=== PATIENT | female | born 1950 | race Caucasian/White ===

== ENCOUNTER 2019-12-15 08:04 | Emergency (ER) | payer MEDICARE, OTHER ==
[~2019-12-15] VITALS: Ht 162.6 cm; Wt 59.9 kg
[2019-12-15] MEDS ORDERED: ANASTROZOLE1 MG PO (08:21)
[2019-12-15] MEDS ORDERED: VITAMIN D400 UNIT PO (08:22)
[2019-12-15] MEDS ORDERED: VITAMIN B122500 MCG PO (08:22)
[2019-12-15] MEDS ORDERED: LISINOPRIL2.5 MG PO (08:22)
[2019-12-15] MEDS ORDERED: FOSAMAX 70 MG T70 MG PO (08:22)
[2019-12-15] MEDS ORDERED: CALCIUM500 MG PO (08:22)
[2019-12-15 09:14] LABS: ABSOLUTE LYMPHOCYTES 0.8 thou/uL (0.8-5.3); ABSOLUTE MONOCYTES 0.4 thou/uL (0.0-1.2); ABSOLUTE NEUTROPHILS 1.8 thou/uL (1.6-8.1); BASOPHILS 1.2 %; EOSINOPHILS 1.1 %; HEMATOCRIT 37.7 % (37.0-47.0); HEMOGLOBIN 12.8 gm/dL (12.0-15.0); LYMPHOCYTES 25.1 %; MCH 30.9 pg (26.0-34.0); MCHC 33.8 g/dL (28.0-37.0); MCV 91.3 fL (80.0-100.0); MPV 5.9 fl. (7.2-11.1); NUCLEATED RBCS 0 /100WBC; PLATELET COUNT* 258 thou/uL (150-400); POLYS 58.6 %; RBC 4.13 mil/uL (4.20-5.00); RDW-CV 14.4 % (10.5-14.5); WBC 3.1 thou/uL (4.0-11.0)
[2019-12-15 09:34] LABS: ALBUMIN 3.6 g/dL (3.4-5.0); CALCIUM 8.5 mg/dL (8.5-10.1); CREATININE 0.8 mg/dL (0.6-1.3); POTASSIUM 4.1 mmol/L (3.5-5.1); TOTAL BILIRUBIN 0.3 mg/dL (<0.1-1.0); TOTAL PROTEIN 6.5 g/dL (6.4-8.2)
[2019-12-15 09:37] LABS: URINE BILIRUBIN NEGATIVE (Negative); URINE BLOOD NEGATIVE (Negative); URINE CLARITY CLEAR; URINE COLOR YELLOW; URINE GLUCOSE-RANDOM NEGATIVE (Negative); URINE KETONES NEGATIVE (Negative); URINE NITRITE-REFLEX NEGATIVE (Negative); URINE PROTEIN NEGATIVE (Negative); URINE UROBILINOGEN 0.2 E.U./dl (0.2-1.0)
[2019-12-15 09:39] LABS: URINE LEUKOCYTES-REFLEX 2+ (Negative)
[2019-12-15 09:46] LABS: CASTS None Seen /LPF (None Seen); CRYSTALS None Seen /LPF (None Seen); MUCUS 4-6 Moderate strn/LPF (None Seen); SQUAMOUS 4-10 Moderate /LPF (0-3); URINE RBC 0-2 Rare /HPF (0-2)
[2019-12-15 10:51] LABS: INFLUENZA A ANTIGEN Negative (Negative); INFLUENZA B ANTIGEN Negative (Negative)
[2019-12-15] MEDS ORDERED: KEFLEX500 M1 PO (11:31)
[2019-12-15 11:41] VITALS: BP 142/65
--- NOTE | 2019-12-15 15:04 | EKG ---
[place] [address] ELECTROCARDIOGRAM REPORT Name: EMILY YATES Room: [facility]#: [id number] Admission: 12/15/19 Attend Phys: Discharge: 12/15/19 Date of : 48 Report #: [id number] THIS REPORT FOR: //name// [facility] ED Test Date: 2019-12-15 Test Time: 09:01:19 Pat Name: EMILY YATES Department: Room: Gender: F [employer]: : 1950 Requested By: Demi Ngo Order Number: [id number] MD: Jez Yates Measurements Intervals [place] Rate: 66 P: 72 TX: 130 QRS: 63 QRSD: 95 T: 77 QT: 425 QTc: 446 Interpretive Statements Sinus rhythm Probable left ventricular hypertrophy No previous ECG available for comparison Electronically Signed On 12-15-2019 15:03:42 [employer] by Jez Yates [email or web address] <ELECTRONICALLY SIGNED> By: Jez Yates MD, [facility] 12/15/19 1503 0901 0901 Jez Yates MD, FACC /EPI
== END 2019-12-15 11:42 | disposition home or self-care (01) ==
LOC: M.ERS 08:04
PROVIDERS: Personal Emergency Response Attendant
DX: N39.0 Urinary tract infection, site not specified (principal); R53.1 Weakness; Z96.642 Presence of left artificial hip joint; Z85.3 Personal history of malignant neoplasm of breast